=== PATIENT | male | born 1990 | race Caucasian/White ===

== ENCOUNTER 2017-04-10 15:28 | Emergency (ER) | payer MEDICAID, OTHER ==
[~2017-04-10] VITALS: Ht 193 cm; Wt 105.0 kg
[~2017-04-10 15:28] MED LIST: AMOX500T PO; CIPR0.3S RIGHT EAR; CORTIS10A AS; IBUP600 PO; SULF1SOL4 RIGHT EYE
[2017-04-10 15:31] VITALS: BP 135/82; PULSE 104; RESP 16; TEMP 98.9; O2SAT 95
--- NOTE | 2017-04-10 15:47 | PD ---
Physical Exam Time Seen by Provider: 15:46 Narrative 26-year-old male presents emergency Department with complaint of cough 2 months. Chest pain 2 weeks. Denies shortness of breath. Reports sweating last night. Reports nasal congestion. Patient seen in triage. Vital signs reviewed. Patient awaiting bed placement. Data Data Last Documented VS Vital Signs Date Time Temp Pulse Resp B/P (MAP) Pulse Ox O2 Delivery O2 Flow Rate FiO2 04/10/17 15:31 98.9 104 16 135/82 (99) 95 MDM Supervised Visit with BOLIVAR: Tammy Zamora Apr 10, 2017 15:47
--- NOTE | 2017-04-10 16:14 | RADRPT ---
EXAM DATE/TIME: 04/10/2017 16:05 [place] COMPARISON: No previous studies available for comparison. INDICATIONS : Cough, shortness of breath for 2 months MEDICAL HISTORY : None. SURGICAL HISTORY : None. ENCOUNTER: Initial ACUITY: 2 months PAIN SCORE: 5/10 LOCATION: Bilateral chest FINDINGS: PA and lateral views of the chest show a 2.5 cm rounded area consolidation involving the right upper lobe. Remaining lungs are clear. No effusions. Heart is normal in size. Bony structures are unremarka ble. CONCLUSION: 2.5 cm rounded area consolidation within the right upper lobe. This likely relates to an area consoli dation such as an acute infiltrate. I would suggest a follow up PA and lateral view of the chest foll owing appropriate therapy to document resolution. Efraín Arshad Jr., MD on April 10, 2017 at 16:11 Board Certified Radiologist. This report was verified electronically.
--- NOTE | 2017-04-10 18:00 | PD ---
HPI Chief Complaint: Cold / Flu Symptoms Time Seen by Provider: 17:58 Travel History International Travel<30 days: No Contact w/Intl Traveler<30days: No Traveled to known affect area: No History of Present Illness HPI 40-year-old male with 2 month history of worsening cough associated with reflux, sinus congestion, postnasal drip, and increased shortness of breath. Patient has had cold sweats in the last few days. Patient has been seen by an urgent care provider approximately a week ago and started on omeprazole 40 mg for his reflux, which has improved, as well as albuterol metered-dose inhaler which hasn't seemed to help. Patient states that he quit smoking approximately 6 months ago. He states the cough has been persistent for the last 2 months and worse in the last few weeks. Patient denies ear pain but does have some throat discomfort from the cough. He can states that even with the omeprazole he still wakes up with gastric reflux symptoms without guarding. He has to sleep elevated at the head. He states his cough is only mildly productive. It is worse at night and first thing in the morning. He hasn't no sinus allergies or known drug allergies. PFSH Social History Alcohol Use: Yes Tobacco Use: No Substance Use: No Allergies-Medications (Allergen,Severity, Reaction): Coded Allergies: No Known Allergies (Unverified , 06/06/13) Reported Meds & Prescriptions Reported Meds & Active Scripts Active Ciprodex Otic Susp (Ciprofloxacin/Dexamethasone) 7.5 Ml Susp 4 Drop RIGHT EAR BID 7 Days Reported Sodium Sulamyd (Sulfacetamide Sodium) 15 Ml Soln 2 Drop RIGHT EYE QID Cortisporin Otic Suspension (Neomycin/Polymyxin/Hydrocortisone) 10 Ml Susp 3 Drop QID 10 Days FOR 10 DAYS Amoxil (Amoxicillin) 500 Mg Tab 500 Mg PO Q8H Motrin 600 Mg Tab (Ibuprofen) 600 Mg Tab 600 Mg PO Q6H PRN Review of Systems Except as stated in HPI: all other systems reviewed are Neg General / Constitutional: No: Fever, Chills Eyes: No: Visual changes HENT: Positive: Headaches, Sore Throat, Rhinitis (irritation.), Rhinorrhea, Congestion, No: Vertigo, Lightheadedness, Nosebleed, Neck Stiffness, Neck Pain, Dental Difficulties, Earache Cardiovascular: No: Chest Pain or Discomfort Respiratory: Positive: Cough, Shortness of Breath, Night Sweats, No: Wheezing, Sneezing, Orthopnea, Hemoptysis, Stridor, Pleuritic Pain Gastrointestinal: Positive: Other (chronic reflux.), No: Nausea, Vomiting, Diarrhea, Abdominal Pain Genitourinary: No: Dysuria Musculoskeletal: No: Pain Skin: No Rash Neurologic: No: Weakness Psychiatric: No: Depression Endocrine: No: Polydipsia Hematologic/Lymphatic: No: Easy Bruising Physical Exam Narrative GENERAL: Patient appears in mild distress. He is able to speak in full sentences. He does have a hoarse wet sounding cough. SKIN: Warm and dry. Normal color. Normal turgor. No diaphoresis. HEAD: Atraumatic. Normocephalic. Patient has moderate pansinus tenderness also localized in the left maxillary sinus. EYES: Pupils equal and round. No scleral icterus. No injection or drainage. ENT: No nasal bleeding or discharge. Mucous membranes pink and moist. Posterior pharynx appears irritated but not significantly erythematous or swollen. There is some cobblestoning. There is no obvious postnasal drip noted. Tonsillitis or exudate. TMs are clear bilaterally. NECK: Trachea midline. Supple nontender. CARDIOVASCULAR: Regular rate and rhythm. RESPIRATORY: No accessory muscle use. Coarse to auscultation. No significant wheezing or rales or rhonchi. Breath sounds equal bilaterally. GASTROINTESTINAL: Abdomen soft, non-tender, nondistended. Hepatic and splenic margins not palpable. MUSCULOSKELETAL: Extremities without clubbing, cyanosis, or edema. No obvious deformities. NEUROLOGICAL: Awake and alert. No obvious cranial nerve deficits. Motor grossly within normal limits. Five out of 5 muscle strength in the arms and legs. Normal speech. PSYCHIATRIC: Appropriate mood and affect; insight and judgment normal. Data Data Last Documented VS Vital Signs Date Time Temp Pulse Resp B/P (MAP) Pulse Ox O2 Delivery O2 Flow Rate FiO2 04/10/17 15:31 98.9 104 16 135/82 (99) 95 Orders Orders Electrocardiogram (04/10/17 15:47) Chest, Pa & Lat (04/10/17 15:47) Levofloxacin (Levaquin) (04/10/17 18:15) Prednisone (Deltasone) (04/10/17 18:15) MDM Medical Decision Making Medical Screen Exam Complete: Yes Emergency Medical Condition: Yes Differential Diagnosis 2 months of cough. Post nasal drip. Sinusitis. Pneumonia. Chronic reflux. Reflux induced cough and sinusitis. Possible aspiration pneumonia. Narrative Course Chest x-ray is ordered in triage showing a right upper/middle lobe infiltrate. This is read by radiologist. Further laboratory testing is not felt warranted based on the patient's history and physical. Vital signs show the patient to be mildly tachycardic but no other signs of PE or sepsis. Patient is given prednisone 40 mg by mouth now. Patient is given his first dose of Levaquin 750 mg by mouth now. Patient will be started on Flonase nasal spray 2 sprays each nostril daily. Patient obtained on prednisone 20 mg twice a day for 5 days. Patient continued on Levaquin 750 mg daily 10 days. Patient is to continue his omeprazole 40 mg daily as previously prescribed. Patient is to continue his albuterol as needed. Patient is referred to his primary care physician and possible follow-up with a finance business partner as I feel this is the nidus of this problem. Diagnosis Primary Impression: Pneumonia Qualified Codes: J69.0 - Pneumonitis due to inhalation of food and vomit Additional Impressions: Sinusitis, acute Qualified Codes: J01.40 - Acute pansinusitis, unspecified Acid reflux disease Qualified Codes: K21.9 - Gastro-esophageal reflux disease without esophagitis Referrals: Skye Navarro MD Primary Care Physician Patient Instructions: Aspiration Pneumonia (DC), Diet for Stomach Ulcers and Gastritis (ED), General Instructions, Sinusitis (ED) Additional Instructions: Patient is given prednisone 40 mg by mouth now. Patient is given his first dose of Levaquin 750 mg by mouth now. Patient will be started on Flonase nasal spray 2 sprays each nostril daily. Patient obtained on prednisone 20 mg twice a day for 5 days. Patient continued on Levaquin 750 mg daily 10 days. Patient is to continue his omeprazole 40 mg daily as previously prescribed. Patient is to continue his albuterol as needed. Patient is referred to his primary care physician and possible follow-up with a finance business partner as I feel this is the nidus of this problem. Med/Other Pt SpecificInfo: Prescription(s) given Disposition: 01 DISCHARGE HOME Condition: Stable Adiel Shields Apr 10, 2017 18:00
[2017-04-10] MEDS ORDERED: predniSONE 20 MG TAB PO ONE (18:15)
[2017-04-10] MEDS ORDERED: LEVOFLOXACIN 750 MG TAB PO ONE (18:15)
[2017-04-10] MEDS ORDERED: LEVA750T9 PO (18:27)
[2017-04-10] MEDS ORDERED: PRED20 PO (18:27)
[2017-04-10] MEDS ORDERED: FLUT1SPR5 EACH NARE (18:27)
--- NOTE | 2017-04-10 18:37 | PD ---
Physical Exam Date Seen by Provider: Apr 10, 2017 Narrative This patient presents with the chief complaint of a cough. Data Data Last Documented VS Vital Signs Date Time Temp Pulse Resp B/P (MAP) Pulse Ox O2 Delivery O2 Flow Rate FiO2 04/10/17 15:31 98.9 104 16 135/82 (99) 95 Orders Orders Electrocardiogram (04/10/17 15:47) Chest, Pa & Lat (04/10/17 15:47) Levofloxacin (Levaquin) (04/10/17 18:15) Prednisone (Deltasone) (04/10/17 18:15) Ed Discharge Order (04/10/17 18:27) MDM Supervised Visit with BOLIVAR: Yes Narrative Course I, Dr. Welch, have reviewed the advance practice practitioner's documentation and am in agreement, met with the patient face to face, made the diagnosis, and the medical decision making was done by me. *My assessment and Findings: This patient does not appear to be in respiratory distress. Lungs have good air movement. He is able to speak in complete sentences. Last Impressions Chest X-Ray 04/10/17 5607 Signed Impressions: Service Date/Time: Monday, April 10, 2017 16:05 - CONCLUSION: 2.5 cm rounded area consolidation within the right upper lobe. This likely relates to an area consolidation such as an acute infiltrate. I would suggest a follow up PA and lateral view of the chest following appropriate therapy to document resolution. Efraín Arshad Jr., MD Please see Wesley Shields PA-C's note for results of laboratory and radiographic evaluation, ED course, final diagnosis and disposition Diagnosis Primary Impression: Pneumonia Qualified Codes: J69.0 - Pneumonitis due to inhalation of food and vomit Additional Impressions: Acid reflux disease Qualified Codes: K21.9 - Gastro-esophageal reflux disease without esophagitis Sinusitis, acute Qualified Codes: J01.40 - Acute pansinusitis, unspecified Referrals: Skye Navarro MD Primary Care Physician Patient Instructions: General Instructions, Sinusitis (ED), Diet for Stomach Ulcers and Gastritis (ED), Aspiration Pneumonia (DC) Additional Instruction: Patient is given prednisone 40 mg by mouth now. Patient is given his first dose of Levaquin 750 mg by mouth now. Patient will be started on Flonase nasal spray 2 sprays each nostril daily. Patient obtained on prednisone 20 mg twice a day for 5 days. Patient continued on Levaquin 750 mg daily 10 days. Patient is to continue his omeprazole 40 mg daily as previously prescribed. Patient is to continue his albuterol as needed. Patient is referred to his primary care physician and possible follow-up with a mac operator as I feel this is the nidus of this problem. Scripts Fluticasone Nasal [place] (Flonase Nasal [place]) 50 Mcg/Act [place] 100 MCG EACH NARE BID for Allergies, #1 BOTTLE 0 Refills Prov: Ann Welch MD 04/10/17 Prednisone (Prednisone) 20 Mg Tab 20 MG PO BID for 5 Days, #10 TAB 0 Refills Prov: Ann Welch MD 04/10/17 Levofloxacin (Levaquin) 750 Mg Tablet 750 MG PO DAILY for Infection for 10 Days, #10 TAB 0 Refills Prov: Ann Welch MD 04/10/17 Disposition: 01 DISCHARGE HOME Condition: Stable Ann Welch MD Apr 10, 2017 18:37
[2017-04-11] MEDS ORDERED: OMEP40CA2 PO (01:33)
[2017-04-11] MEDS ORDERED: VENTAER INH (01:55)
[2017-04-11] MEDS ORDERED: MUCI30TA2 PO (01:55)
[2017-04-11] MEDS ORDERED: NALOXONE HCL 0.4 MG/ML AMP IV PUSH PRN (04:00)
[2017-04-11] MEDS ORDERED: SODIUM CHLORIDE 0.9% FLUSH 10 ML FLUSH IV FLUSH PRN (04:00)
[2017-04-11] MEDS ORDERED: SODIUM CHLORIDE 0.9% FLUSH 10 ML FLUSH IV FLUSH SCH (09:00)
--- NOTE | 2017-04-11 12:13 | EKG ---
Date Performed: 04/10/2017 Time Performed: 15:53:23 PTAGE: 26 years EKG: SINUS TACHYCARDIA POSSIBLE LEFT ATRIAL ENLARGEMENT INCOMPLETE RIGHT BUNDLE BRANCH BLOCK ABN ORMAL RHYTHM ECG NO PREVIOUS TRACING DOCTOR: Janice Almonte Interpretating Date/Time 04/11/2017 12:11:45
== END 2017-04-10 19:12 | disposition home or self-care (01) ==
LOC: NEPD 15:28
DX: J69.0 Pneumonitis due to inhalation of food and vomit (principal); K21.9 Gastro-esophageal reflux disease without esophagitis; J01.40 Acute pansinusitis, unspecified; R00.0 Tachycardia, unspecified; Z87.891 Personal history of nicotine dependence
CPT/HCPCS: 71020; 93005; 99284; J7512

== ENCOUNTER 2017-04-11 01:13 | Inpatient (IN) | payer MEDICAID ==
[~2017-04-11] VITALS: Ht 193 cm; Wt 105.5 kg
[2017-04-11] VITALS (10 sets, daily range): BP systolic 106–138; BP diastolic 55–76; PULSE 82–113; RESP 16–22; TEMP 96.4–99; O2SAT 95–98
[~2017-04-11 01:13] MED LIST changes: +FLUT1SPR5 EACH NARE; +LEVA750T9 PO; +PRED20 PO
[2017-04-11] MEDS ORDERED: OMEP40CA2 PO (01:33)
[2017-04-11] MEDS ORDERED: VENTAER INH (01:55)
[2017-04-11] MEDS ORDERED: MUCI30TA2 PO (01:55)
[2017-04-11] MEDS ORDERED: SODIUM CHLOR 0.9% 1000 ML INJ 1,000 ML IV ONE (02:00)
[2017-04-11] MEDS ORDERED: metroNIDAZOLE 500 MG INJ 100 ML IV ONE (02:00)
[2017-04-11 02:27] LABS: BLOOD, URINE NEG (NEG); GLUCOSE,URINE NEG (NEG); KETONE, URINE NEG (NEG); NITRITE,URINE NEG (NEG)
[2017-04-11 02:28] LABS: AUTOMATED NEUTROPHIL # 22.9 TH/MM3 (1.8-7.7); BASOPHIL # 0.1 TH/MM3 (0-0.2); BASOPHIL % 0.6 % (0.0-2.0); EOSINOPHIL % 0.1 % (0.0-4.0); HEMATOCRIT 45.2 % (39.0-51.0); LYMPH % 3.6 % (9.0-44.0); LYMPHOCYTE # 0.9 TH/MM3 (1.0-4.8); MEAN CELL VOLUME 91.2 FL (80.0-100.0); MEAN CORPUSCULAR HEMOGLOBIN 30.5 PG (27.0-34.0); MEAN CORPUSCULAR HGB CONC 33.5 % (32.0-36.0); MONO % 0.7 % (0.0-8.0); PLATELET COUNT 217 TH/MM3 (150-450); RED BLOOD COUNT 4.96 MIL/MM3 (4.50-5.90); RED CELL DISTRIBUTION WIDTH 11.4 % (11.6-17.2); WHITE BLOOD COUNT 24.1 TH/MM3 (4.0-11.0)
[2017-04-11 02:32] LABS: HEMO FLAGS DIFF FINAL
[2017-04-11 02:34] LABS: URINE COLOR YELLOW (YELLW/STRAW)
[2017-04-11 02:35] LABS: COMMENT (UR) CULT NOT INDICATED; CULTURE IF INDICATED CULT NOT INDICATED; RBC, URINE 0-2 /hpf (0-3); SQUAMOUS EPITHELIAL CELL URINE 0-5 /hpf (0-5); WBC, URINE 0-2 /hpf (0-5)
[2017-04-11 02:38] LABS: CHLORIDE 103 MEQ/L (98-107); SODIUM (NA) 136 MEQ/L (136-145)
[2017-04-11 02:41] LABS: ANION GAP 9 MEQ/L (5-15); BICARBONATE 24.2 MEQ/L (21.0-32.0); BLOOD UREA NITROGEN 13 MG/DL (7-18)
[2017-04-11 02:44] LABS: ALT (GPT) 126 U/L (12-78)
[2017-04-11 02:45] LABS: AST (GOT) 58 U/L (15-37); GLOMERULAR FILTRATION RATE 106 ML/MIN (>89)
[2017-04-11] MEDS ORDERED: PANTOPRAZOLE SODIUM 40 MG VIAL IV PUSH ONE (02:45)
[2017-04-11] MEDS ORDERED: KETOROLAC TROMETHAMINE 30 MG/ML (IVP) VIAL IV PUSH ONE (02:45)
[2017-04-11 02:46] LABS: TOTAL BILIRUBIN ADULT 1.1 MG/DL (0.2-1.0)
[2017-04-11 02:47] LABS: ALKALINE PHOSPHATASE 117 U/L (45-117)
--- NOTE | 2017-04-11 03:18 | PD ---
HPI Chief Complaint: Respiratory Distress Time Seen by Provider: 02:00 Travel History International Travel<30 days: No Contact w/Intl Traveler<30days: No Traveled to known affect area: No History of Present Illness HPI 26-year-old male presents to the emergency department by private transportation for evaluation of cough with shortness of breath and chest pain. According to patient the past 2 months has had progressively worsening cough. Patient is been seen by his primary care provider and started on medication for reflux esophagitis and told to use allergy medications for cough symptoms. Due to ongoing and persistent symptoms patient patient decided to be evaluated today and [facility] was identified by chest x-ray to have a right upper lobe area of consolidation concerning for an infiltrate. Patient was started on oral steroids and oral antibiotic. Patient was given option to be admitted to the hospital but declined and was encouraged to return to the hospital if he became more symptomatic although had been informed that he may do well as an outpatient once antibiotic and had a chance to take effect. In the interim patient reports that he has continued to feel more poorly and has had chills but denies any fever. Patient continues complaining of shortness of breath chest pain and cough. Cough is nonproductive. Patient has been sitting upright to manage reflux symptoms. Patient rates pain 6/10 intensity. No recent long distance travel protracted bedrest her surgical procedure no lower extremity pain or swelling. Patient does not describe his chest discomfort as pleuritic. Patient is unable to identify exacerbating or alleviating factors. PFSH Past Medical History Narrative Medical GERD, pneumonia dyslipidemia tobacco use nursing notes reviewed Diminished Hearing: No Gastrointestinal Disorders: Yes (ELEVATED LFT'S) GERD: Yes Pneumonia: Yes Triglycerides - High: Yes Tetanus Vaccination: > 5 Years Influenza Vaccination: Yes Past Surgical History Oral Surgery: Yes Social History Alcohol Use: Yes Tobacco Use: Yes (3 CIGARETTES PER WEEK) Substance Use: No Allergies-Medications (Allergen,Severity, Reaction): Coded Allergies: No Known Allergies (Unverified , 04/11/17) Reported Meds & Prescriptions Reported Meds & Active Scripts Active Flonase Nasal [place] (Fluticasone Nasal [place]) 50 Mcg/Act [place] 100 Mcg EACH NARE BID Prednisone 20 Mg Tab 20 Mg PO BID 5 Days Levaquin (Levofloxacin) 750 Mg Tablet 750 Mg PO DAILY 10 Days Reported Mucinex DM (Dextromethorphan-Guaifenesin) 30-600 Mg Tab 1 Tab PO BID PRN Ventolin Hfa 18 GM Inh (Albuterol Sulfate) 90 Mcg/Act Aer 2 Puff INH Q4H PRN Omeprazole 40 Mg Cap 40 Mg PO DAILY Review of Systems Except as stated in HPI: all other systems reviewed are Neg General / Constitutional: Positive: Chills, No: Fever HENT: Positive: Congestion Cardiovascular: Positive: Chest Pain or Discomfort Respiratory: Positive: Cough, Shortness of Breath Gastrointestinal: Positive: Nausea Genitourinary: No: Flank Pain Musculoskeletal: Positive: Myalgias, Arthralgias Skin: No Rash Neurologic: Positive: Weakness, No: Syncope, Headache Psychiatric: No: Anxiety Hematologic/Lymphatic: No: Lymph Node Enlargement Physical Exam Narrative GENERAL: Well-developed well-nourished male in no acute distress no respiratory distress SKIN: Warm and dry. HEAD: Normocephalic. EYES: No scleral icterus. No injection or drainage. NECK: Supple, trachea midline. No JVD or lymphadenopathy. CARDIOVASCULAR: Regular rate and rhythm without murmurs, gallops, or rubs. RESPIRATORY: Breath sounds equal bilaterally. No accessory muscle use. GASTROINTESTINAL: Abdomen soft, non-tender, nondistended. MUSCULOSKELETAL: No cyanosis, or edema. BACK: Nontender without obvious deformity. No CVA tenderness. Data Data Last Documented VS Vital Signs Date Time Temp Pulse Resp B/P (MAP) Pulse Ox O2 Delivery O2 Flow Rate FiO2 04/11/17 02:49 97.7 86 22 111/66 (81) 98 Room Air Orders Orders Electrocardiogram (04/11/17 02:00) Complete Blood Count With Diff (04/11/17 02:00) Comprehensive Metabolic Panel (04/11/17 02:00) Lactic Acid Sepsis Protocol (04/11/17 02:00) Urinalysis - C+S If Indicated (04/11/17 02:00) Blood Culture (04/11/17 02:00) Ecg Monitoring (04/11/17 02:00) Iv Access Insert/Monitor (04/11/17 02:00) Oximetry (04/11/17 02:00) Sodium Chlor 0.9% 1000 Ml Inj (Ns 1000 M (04/11/17 02:00) Metronidazole 500 Mg Inj (Flagyl 500 Mg (04/11/17 02:00) Ketorolac Inj (Toradol Inj) (04/11/17 02:45) Pantoprazole Inj (Protonix Inj) (04/11/17 02:45) Influenzae A/B Antigen (04/11/17 02:44) D-Dimer (04/11/17 02:44) Admit Order (Ed Use Only) (04/11/17 04:01) Admit To Inpatient (04/11/17 ) Inpatient Certification (04/11/17 ) Clindamycin Inj (Cleocin Inj) (04/11/17 04:30) Lactobacillus Acidophilus (Lactinex) (04/11/17 09:00) Labs Laboratory Tests Test 04/11/17 02:10 White Blood Count 24.1 TH/MM3 Red Blood Count 4.96 MIL/MM3 Hemoglobin 15.1 GM/DL Hematocrit 45.2 % Mean Corpuscular Volume 91.2 FL Mean Corpuscular Hemoglobin 30.5 PG Mean Corpuscular Hemoglobin Concent 33.5 % Red Cell Distribution Width 11.4 % Platelet Count 217 TH/MM3 Mean Platelet Volume 9.2 FL Neutrophils (%) (Auto) 95.0 % Lymphocytes (%) (Auto) 3.6 % Monocytes (%) (Auto) 0.7 % Eosinophils (%) (Auto) 0.1 % Basophils (%) (Auto) 0.6 % Neutrophils # (Auto) 22.9 TH/MM3 Lymphocytes # (Auto) 0.9 TH/MM3 Monocytes # (Auto) 0.2 TH/MM3 Eosinophils # (Auto) 0.0 TH/MM3 Basophils # (Auto) 0.1 TH/MM3 CBC Comment DIFF FINAL Differential Comment D-Dimer Quantitative (PE/DVT) 0.31 MG/L FEU Urine Color YELLOW Urine Turbidity CLEAR Urine pH 6.0 Urine Specific [place] 1.017 Urine Protein NEG mg/dL Urine Glucose (UA) NEG mg/dL Urine Ketones NEG mg/dL Urine Occult Blood NEG Urine Nitrite NEG Urine Bilirubin NEG Urine Leukocyte Esterase NEG Urine RBC 0-2 /hpf Urine WBC 0-2 /hpf Urine Squamous Epithelial Cells 0-5 /hpf Urine Bacteria NONE /hpf Microscopic Urinalysis Comment CULT NOT INDICATED Blood Urea Nitrogen 13 MG/DL Creatinine 0.86 MG/DL Random Glucose 144 MG/DL Total Protein 8.3 GM/DL Albumin 4.1 GM/DL Calcium Level 9.2 MG/DL Alkaline Phosphatase 117 U/L Aspartate Amino Transf (AST/SGOT) 58 U/L Alanine Aminotransferase (ALT/SGPT) 126 U/L Total Bilirubin 1.1 MG/DL Sodium Level 136 MEQ/L Potassium Level 4.0 MEQ/L Chloride Level 103 MEQ/L Carbon Dioxide Level 24.2 MEQ/L Anion Gap 9 MEQ/L Estimat Glomerular Filtration Rate 106 ML/MIN Lactic Acid Level 1.7 mmol/L MDM Medical Decision Making Medical Screen Exam Complete: Yes Emergency Medical Condition: Yes Medical Record Reviewed: Yes Interpretation(s) lactic acid: 1.7 CBC is automated differential leukocytosis white count 24,000 with left shift Complete metabolic panel mild elevation of LFTs a 9 gap 11 not elevated Urinalysis within normal limits d-dimer: 0.31, not elevated influenza a/b ag: negative Differential Diagnosis Pneumonia, viral syndrome, influenza, dehydration, PE Narrative Course Consolidation consistent with Patient recently evaluated at [facility] earlier in the day diagnosed with right upper lobe pneumonia possible aspiration pneumonia with history of reflux esophagitis started on oral antibiotic Levaquin was discharged home and noted to have increasing symptoms of present at this time for admission as earlier had been given the option for admission versus outpatient management. Patient with marked leukocytosis 24,000 with 95% neutrophils by automated differential lactic acid is normal range at 1.7 Influenza is negative EKG sinus rhythm rate 84 right ventricular conduction delay no acute ST elevation or injury pattern change noted no ectopy Chest x-ray from 4 PM in the afternoon shows right upper lobe consolidation consistent with infiltrate Critical Care Narrative Aggregate critical care time was 30 minutes. Time to perform other separately billable procedures was not included in the critical care time. My time did not include minutes spent treating any other patients simultaneously or on activities that did not directly contribute to the patient's treatment. The services I provided to this patient were to treat and/or prevent clinically significant deterioration that could result in: Respiratory failure, septic shock, I provided critical care services requiring my management, as noted below: Chart data review, documentation time, medication orders and management, vital sign assessments/reviewing monitor data, ordering and reviewing lab tests, ordering and interpreting/reviewing x-rays and diagnostic studies, care of the patient and discussion of the patient with the admitting physicians. Sepsis Criteria SIRS Criteria (2 or more): Heart rate over 90, WBC > 38959, < 4000 or > 10% bands Sepsis Criteria (SIRS+source): Infect source susp/known (pneumonia) Physician Communication Physician Communication call placed to [facility] -- discussed with Dr Mckeon for admisssion Diagnosis Primary Impression: Pneumonia Qualified Codes: J18.1 - Lobar pneumonia, unspecified organism Additional Impression: Sepsis Qualified Codes: A41.9 - Sepsis, unspecified organism Admitting Information Admitting Physician Requests: Admit Vilma Barboza MD Apr 11, 2017 03:17
[2017-04-11] MEDS: CLINDAMYCIN INJ 900 MG in SODIUM CHLORIDE 0.9% INJ 100 ML IV SCH ×4 (04:33→18:01)
[2017-04-11] MEDS: LACTOBACILLUS ACIDOPHILUS TAB PO SCH ×3 (08:20→18:01)
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
--- NOTE | 2017-04-11 12:22 | EKG ---
Date Performed: 04/11/2017 Time Performed: 02:19:58 PTAGE: 26 years EKG: Sinus rhythm POSSIBLE RIGHT VENTRICULAR CONDUCTION DELAY BORDERLINE ECG PREVIOUS TRACING : 04/10/2017 15.53 Compared to prior tracing no significant change DOCTOR: Janice Almonte Interpretating Date/Time 04/11/2017 12:17:58
[2017-04-11 13:12] LABS: CHLORIDE 103 MEQ/L (98-107); POTASSIUM 3.4 MEQ/L (3.5-5.1); SODIUM (NA) 137 MEQ/L (136-145)
[2017-04-11 13:15] LABS: ANION GAP 9 MEQ/L (5-15)
[2017-04-11 13:16] LABS: BLOOD UREA NITROGEN 14 MG/DL (7-18)
[2017-04-11 13:18] LABS: ALT (GPT) 98 U/L (12-78)
[2017-04-11 13:19] LABS: AST (GOT) 41 U/L (15-37); GLOMERULAR FILTRATION RATE 113 ML/MIN (>89)
[2017-04-11 13:20] LABS: TOTAL BILIRUBIN ADULT 0.7 MG/DL (0.2-1.0)
[2017-04-11 13:21] LABS: ALKALINE PHOSPHATASE 99 U/L (45-117)
[2017-04-11] MEDS ORDERED: RESP: ALBUTEROL 2.5 MG/IPRATROPIUM 0.5 MG NEB (PRN) NEB (17:00)
[2017-04-11] MEDS ORDERED: AZITHROMYCIN 250 MG TAB PO ONE (17:15)
[2017-04-11] MEDS: RESP: ALBUTEROL 2.5 MG/IPRATROPIUM 0.5 MG NEB (SCH) NEB (19:28)
[2017-04-11] MEDS ORDERED: ACETAMINOPHEN 500 MG CPLT PO ONE (19:45)
[2017-04-11] MEDS ORDERED: NAPROXEN 250 MG TAB PO PRN (19:45)
[2017-04-11] MEDS: guaiFENesin E.R. 600 MG TAB PO SCH (19:46)
--- NOTE | 2017-04-11 21:56 | RADRPT ---
EXAM DATE/TIME: 04/11/2017 21:30 [place] COMPARISON: CHEST PA & LAT, April 10, 2017, 16:05. INDICATIONS : Productive cough since this morning. MEDICAL HISTORY : None. SURGICAL HISTORY : None. ENCOUNTER: Subsequent ACUITY: 1 day PAIN SCORE: 0/10 LOCATION: Bilateral chest FINDINGS: Compare April 10. Again seen is the patchy airspace disease in right upper lobe most characteristic of bronchopneumonia. Followup recommended in the next several weeks after therapy. Left lung clear. No effusion. Heart size normal. CONCLUSION: 1. Patchy airspace disease right upper lobe most characteristic of a bronchopneumonia. Findings simil ar to April 10. Khai Norman MD on April 11, 2017 at 21:53 Board Certified Radiologist. This report was verified electronically.
[2017-04-12] VITALS: BP 122/58; PULSE 83; RESP 20; TEMP 96.8; O2SAT 97
[2017-04-12] MEDS: CLINDAMYCIN INJ 900 MG in SODIUM CHLORIDE 0.9% INJ 100 ML IV SCH ×5 (00:53→17:51)
[2017-04-12 04:00] VITALS: BP 119/74; PULSE 88; RESP 16; TEMP 95.9; O2SAT 98
[2017-04-12] MEDS ORDERED: NAPROXEN 250 MG TAB PO ONE (06:15)
[2017-04-12 06:38] LABS: AUTOMATED NEUTROPHIL # 8.8 TH/MM3 (1.8-7.7); BASOPHIL % 0.2 % (0.0-2.0); EOSINOPHIL # 0.3 TH/MM3 (0-0.4); EOSINOPHIL % 2.2 % (0.0-4.0); HEMATOCRIT 38.1 % (39.0-51.0); HEMO FLAGS DIFF FINAL; LYMPH % 13.3 % (9.0-44.0); LYMPHOCYTE # 1.6 TH/MM3 (1.0-4.8); MEAN CELL VOLUME 91.8 FL (80.0-100.0); MEAN CORPUSCULAR HEMOGLOBIN 31.9 PG (27.0-34.0); MEAN CORPUSCULAR HGB CONC 34.8 % (32.0-36.0); MONO % 8.3 % (0.0-8.0); PLATELET COUNT 155 TH/MM3 (150-450); RED BLOOD COUNT 4.15 MIL/MM3 (4.50-5.90); RED CELL DISTRIBUTION WIDTH 11.6 % (11.6-17.2); WHITE BLOOD COUNT 11.7 TH/MM3 (4.0-11.0)
[2017-04-12] MEDS: RESP: ALBUTEROL 2.5 MG/IPRATROPIUM 0.5 MG NEB (SCH) NEB ×2 (07:25→14:40)
[2017-04-12 08:00] VITALS: BP_SYST 130; BP_SYST 184; BP_DIAS 70; BP_DIAS 93; PULSE 99; RESP 20; TEMP 96.6; O2SAT 96
[2017-04-12] MEDS ORDERED: AZITHROMYCIN 250 MG TAB PO SCH (09:00)
[2017-04-12] MEDS: guaiFENesin E.R. 600 MG TAB PO SCH (09:21)
[2017-04-12] MEDS: LACTOBACILLUS ACIDOPHILUS TAB PO SCH ×3 (09:21→17:51)
[2017-04-12] MEDS: BENZONATATE 100 MG CAP PO PRN ×2 (09:23→17:51)
[2017-04-12] MEDS ORDERED: PANTOPRAZOLE SOD 40 MG DELAYED RELEASE TAB PO SCH (09:45)
[2017-04-12] MEDS ORDERED: INFLUENZA VIRUS VACCINE (QUADRIVALENT) 0.5 ML SYR IM ONE (10:00)
[2017-04-12 12:00] VITALS: BP 111/72; PULSE 85; RESP 16; TEMP 97.1; O2SAT 96
[2017-04-12] MEDS ORDERED: SODIUM CHLOR 0.9% 1000 ML INJ 1,000 ML IV ONE (12:00)
[2017-04-12] MEDS ORDERED: KETOROLAC TROMETHAMINE 30 MG/ML (IVP) VIAL IV PUSH ONE (12:00)
[2017-04-12 12:38] LABS: CHLORIDE 106 MEQ/L (98-107); POTASSIUM 3.4 MEQ/L (3.5-5.1); SODIUM (NA) 141 MEQ/L (136-145)
[2017-04-12 12:43] LABS: ANION GAP 10 MEQ/L (5-15); BICARBONATE 25.3 MEQ/L (21.0-32.0); BLOOD UREA NITROGEN 12 MG/DL (7-18)
[2017-04-12 13:17] LABS: ALKALINE PHOSPHATASE 92 U/L (45-117); ALT (GPT) 92 U/L (12-78); AST (GOT) 43 U/L (15-37); GLOMERULAR FILTRATION RATE 124 ML/MIN (>89); TOTAL BILIRUBIN ADULT 0.6 MG/DL (0.2-1.0)
[2017-04-12 16:00] VITALS: BP 124/75; PULSE 105; RESP 18; TEMP 96.6; O2SAT 97
[2017-04-12] MEDS ORDERED: RESP: ACETYLCYSTEINE 10% 30 ML NEB NEB SCH (17:00)
[2017-04-12] MEDS ORDERED: PROM6.256 PO (18:37)
[2017-04-12] MEDS ORDERED: AZIT250T3 PO (18:37)
[2017-04-12] MEDS ORDERED: CLIN1CAP6 PO (18:38)
--- NOTE | 2017-04-12 18:39 | HHI.DCPOC ---
Discharge Care Plan Diagnosis: (1) Atypical pneumonia (2) Sepsis Goals to Promote Your Health * To prevent worsening of your condition and complications * To maintain your health at the optimal level Directions to Meet Your Goals Take your medications as prescribed Follow your dietary instruction Follow activity as directed Keep your appointments as scheduled Take your immunizations and boosters as scheduled If your symptoms worsen call your PCP, if no PCP go to Urgent Care Center or Emergency Room Smoking is Dangerous to Your Health. Avoid second hand smoke Call the 24-hour hour crisis hotline for domestic abuse at Frankie Castillo MD Apr 12, 2017 18:39
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
== END 2017-04-12 19:15 | disposition home or self-care (01) | DRG 871 ==
LOC: PHED 01:13 → PHEDA 04:02 → PHEDH 08:52 → PH3B 15:00
PROVIDERS: ADMIT Hospitalist; ATTEND Hospitalist
DX: A41.9 Sepsis, unspecified organism (principal); J18.9 Pneumonia, unspecified organism; F17.210 Nicotine dependence, cigarettes, uncomplicated; J45.909 Unspecified asthma, uncomplicated; K21.9 Gastro-esophageal reflux disease without esophagitis; E78.5 Hyperlipidemia, unspecified; Z23 Encounter for immunization
CPT/HCPCS: 71020; 80053; 81001; 83605; 83735; 85025; 85379; 87040; 87804; 90686; 93005; 94150; 94640; 94664; 96365; 96375; C9113; J1885; J7030; J7608; Q2038

== ENCOUNTER 2017-10-13 03:26 | Inpatient (IN) | payer OTHER ==
[~2017-10-13] VITALS: Ht 190.5 cm; Wt 98.4 kg
[~2017-10-13 03:26] MED LIST changes: -AMOX500T PO; +AZIT250T3 PO; -CIPR0.3S RIGHT EAR; +CLIN300C5 PO; -CORTIS10A AS; -IBUP600 PO; -LEVA750T9 PO; +OMEP40CA2 PO; -PRED20 PO; +PROM6.256 PO; -SULF1SOL4 RIGHT EYE; +VENTAER INH
[2017-10-13 03:43] VITALS: BP 133/94; PULSE 117; RESP 18; TEMP 98.7; O2SAT 97
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
[2017-10-13 04:19] LABS: AUTOMATED NEUTROPHIL # 7.8 TH/MM3 (1.8-7.7); BASOPHIL # 0.1 TH/MM3 (0-0.2); BASOPHIL % 0.5 % (0.0-2.0); EOSINOPHIL # 0.1 TH/MM3 (0-0.4); EOSINOPHIL % 0.6 % (0.0-4.0); HEMATOCRIT 47.6 % (39.0-51.0); HEMOGLOBIN 16.4 GM/DL (13.0-17.0); LYMPH % 24.9 % (9.0-44.0); LYMPHOCYTE # 2.9 TH/MM3 (1.0-4.8); MEAN CELL VOLUME 91.1 FL (80.0-100.0); MEAN CORPUSCULAR HEMOGLOBIN 31.4 PG (27.0-34.0); MEAN CORPUSCULAR HGB CONC 34.4 % (32.0-36.0); MEAN PLATELET VOLUME 9.7 FL (7.0-11.0); MONO % 6.5 % (0.0-8.0); MONOCYTE # 0.8 TH/MM3 (0-0.9); NEUT % 67.5 % (16.0-70.0); PLATELET COUNT 247 TH/MM3 (150-450); RED BLOOD COUNT 5.23 MIL/MM3 (4.50-5.90); WHITE BLOOD COUNT 11.6 TH/MM3 (4.0-11.0)
[2017-10-13 04:35] LABS: ALBUMIN 4.6 GM/DL (3.4-5.0); ALT (GPT) 37 U/L (12-78); AST (GOT) 22 U/L (15-37); BICARBONATE 26.4 MEQ/L (21.0-32.0); BLOOD UREA NITROGEN 6 MG/DL (7-18); CALCIUM 9.2 MG/DL (8.5-10.1); CHLORIDE 108 MEQ/L (98-107); CREATININE 0.82 MG/DL (0.60-1.30); GLOMERULAR FILTRATION RATE 111 ML/MIN (>89); GLUCOSE,RANDOM 98 MG/DL (74-106); SODIUM (NA) 142 MEQ/L (136-145)
[2017-10-13 04:46] LABS: ALKALINE PHOSPHATASE 132 U/L (45-117); TOTAL BILIRUBIN ADULT 0.6 MG/DL (0.2-1.0)
[2017-10-13 04:50] LABS: ACETAMINOPHEN LESS THAN 2.0 MCG/ML (10.0-30.0)
[2017-10-13 06:00] VITALS: BP 119/67; PULSE 95; RESP 18; O2SAT 97
[2017-10-13] MEDS ORDERED: ACETAMINOPHEN 325 MG TAB PO PRN (07:00)
[2017-10-13] MEDS ORDERED: MAGNESIUM HYDROXIDE SUSP 30 ML CUP PO PRN (07:00)
[2017-10-13] MEDS ORDERED: ALUMINUM/MAGNESIUM/SIMETH 30 ML CUP PO PRN (07:00)
[2017-10-13] MEDS ORDERED: LORazepam 2 MG TAB PO PRN (07:00)
[2017-10-13] MEDS ORDERED: LORazepam 1 MG TAB PO PRN ×2 (07:00)
[2017-10-13] MEDS ORDERED: LORazepam 2 MG/ML VIAL IM PRN ×2 (07:00)
[2017-10-13] MEDS ORDERED: LORazepam 2 MG/ML VIAL IV PUSH PRN ×4 (07:00)
[2017-10-13] MEDS ORDERED: LORazepam 0.5 MG TAB PO PRN (07:00)
[2017-10-13] MEDS ORDERED: FLUMAZENIL 0.5 MG/5 ML VIAL IV PUSH PRN (07:00)
[2017-10-13] MEDS: NICOTINE 21 MG/24 HR PATCH T-DERMAL SCH (09:00)
[2017-10-13 13:31] VITALS: BP 130/75; PULSE 96; RESP 16; TEMP 98.3; O2SAT 98
[2017-10-13 17:38] VITALS: BP 140/80; PULSE 72; RESP 16; TEMP 98.1; O2SAT 97
[2017-10-14 05:56] VITALS: BP 90/65; PULSE 65; RESP 18; TEMP 97.7; O2SAT 97
[2017-10-14] MEDS: NICOTINE 21 MG/24 HR PATCH T-DERMAL SCH (08:45)
[2017-10-14 10:00] LABS: BICARBONATE 26.1 MEQ/L (21.0-32.0); BLOOD UREA NITROGEN 11 MG/DL (7-18); CALCIUM 9.7 MG/DL (8.5-10.1); CHLORIDE 105 MEQ/L (98-107); CREATININE 0.93 MG/DL (0.60-1.30); GLOMERULAR FILTRATION RATE 96 ML/MIN (>89); GLUCOSE,RANDOM 96 MG/DL (74-106); SODIUM (NA) 139 MEQ/L (136-145)
[2017-10-14] MEDS ORDERED: INFLUENZA VIRUS VACCINE (QUADRIVALENT) 0.5 ML SYR IM ONE (10:00)
[2017-10-14 10:02] LABS: CHOLESTEROL 95 MG/DL (120-200); TRIGLYCERIDES 140 MG/DL (42-150)
[2017-10-14 10:04] LABS: CHOLESTEROL/ HDL RATIO 2.36 RATIO; HDL CHOLESTEROL 40.2 MG/DL (40.0-60.0); LDL CHOLESTEROL 27 MG/DL (0-99)
--- NOTE | 2017-10-14 15:07 | HHI.HP ---
Provisional Diagnosis Admission Date Oct 13, 2017 at 06:59 [place]. Adjustment disorder with depressed mood Certification of Person's Competence To Provide Express and Informed Consent I have personally examined Luigi Mandujano , a person being served at [facility] on, Oct 14, 2017 15:05. Express and informed consent means consent voluntarily given in writing, by a competent person, after sufficient explanation and disclosure of the subject matter involved to enable the person to make a knowing and willful decision without any element of force, fraud, deceit, duress, or other form of constraint or coercion. This person is 18 years of age or older, is not now known to be incompetent to consent to treatment with a guardian advocate, and does not have a health care surrogate or proxy currently making medical treatment decisions. I have found this person to be one of the following: [xxx] Competent to provide express and informed consent, as defined above, for voluntary admission to this facility and is competent to provide express and informed consent for treatment. He/she has the consistent capacity to make well reasoned, willful, and knowing decisions concerning his or her medical or mental health treatment. The person fully and consistently understands the purpose of the admission for examination/placement and is fully capable of personally exercising all rights assured under [place] Incompetent to provide express and informed consent to voluntary admission, and this is incompetent to provide express and informed consent to treatment. The person must be transferred to involuntary status and a petition for a guardian advocate filed with the Circuit Court. [] Refusing to provide express and informed consent to voluntary admission but is competent to provide express and informed consent for treatment. The person must be discharged or transferred to involuntary status. Form shall be completed within 24 hours of a person's arrival at the receiving facility and filed in the clinical record of each person: 1. Admitted on a voluntary basis 2. Permitted to provide express and informed consent to his/her own treatment 3. Allowed to transfer from involuntary to voluntary status 4. Prior to permitting a person to consent to his or her own treatment after having been previously found incompetent to consent to treatment. History of Present Illness Capacity: Has Capacity HPI Patient is a 27-year-old man, engaged, domiciled with fianc and 2 children, unemployed, with no formal past psychiatric history, no prior psychiatric admissions, no prior suicide attempts or self injurious behavior,, with history of alcohol use, past medical history significant for GERD, who was brought in under [place] act after patient had told his fiance that he loves his kids after recent argument which she proceeded to grab his guns from the closet and locked himself in the bathroom but was stopped by his fiance in the context of alcohol intoxication and patient was admitted to the inpatient psychiatry unit for further evaluation and management. Discussion nursing staff reported the patient denying having intention for suicide attempt and wanted to be discharged home. Patient was found ambulating on the unit noted B , cooperative. Patient states that prior to his admission he had gotten " really drunk" and stated he was texting his fiance in which he had gotten into an argument when she came home where he had grabbed his will case and started to had to the bathroom was stopped by her. He states that he just wanted to get her attention and that he was drunk with no intent on ending his life. Patient states that he had never had any previous suicide attempts, psychiatric diagnoses or hospitalizations in the past. Patient mentioned he drinks alcohol about 3-4 drinks every 2 months but that prior to his admission had drank more than he usually does. Patient denying any depressive symptoms reporting good sleep, appetite, energy and concentration, denying feeling sad or depressed, denying perceptual disturbances or delusions. Collateral information was obtained from patient's fianc Ruby Horton [phone], who states that patient has been involved with her for the past 8 years and states she knows him very well. She states that patient has never had any prior psychiatric diagnoses, admissions or suicide attempts but in the recent past has told her to tell his kids that he loves them and that he cannot do this anymore in the context of arguments with her. She states believing the patient would benefit from outpatient therapy, has no safety concerns of patient returning home but would like patient to be connected to outpatient services. She states that she plans on visiting patient this evening and will communicate how the visit went with staff tomorrow. Family psychiatric history: Denies Past psychiatric history: Denies any previous psychiatric diagnoses, hospitalizations, suicide attempts or self-injurious behavior. Patient denies any history of abuse. Substance use history: Patient reports alcohol use every 2 months about 3-4 drinks at a time but states that her last drink was prior to his admission which he states had 5-6 drinks. Patient denies history of other drug use, denies any history of detox or rehabilitation programs. 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 Patient denies any legal history, denies any history, denies having any asked to firearms as he states there were removed by the police when the brought him to the hospital. Review of Systems Except as stated in HPI: all other systems reviewed are Neg Past Psych History Psychological trauma history Denies Violence risk - others (6 mos) Low Violence risk - self (6 mos) Elevated due to recent suicidal ideation Substance Abuse History Drugs/Alcohol past 12 months Patient reports alcohol use every 2 months about 3-4 drinks at a time but states that her last drink was prior to his admission which he states had 5-6 drinks. Patient denies history of other drug use, denies any history of detox or rehabilitation programs. Past Family Social History Coded Allergies: No Known Allergies (Unverified Allergy, Unknown, 10/13/17) Reported Medications Albuterol 18 GM Inh (Ventolin Hfa 18 GM Inh) 90 Mcg/Act Aer, 2 PUFF INH Q4H Y for SHORTNESS OF BREATH, #1 INHALER 0 Refills 04/11/17 Discontinued Reported Medications Omeprazole (Omeprazole) 40 Mg Cap, 40 MG PO DAILY, #30 CAP 0 Refills 04/11/17 Discontinued Scripts Clindamycin (Clindamycin) 300 Mg Cap, 300 MG PO Q6H for Infection, #32 CAP 0 Refills Prov:Frankie Castillo MD 04/12/17 Promethazine-Codeine Liq (Promethazine-Codeine Liq) 6.25-10 Mg/5 Ml Syrp, 10 ML PO Q4H Y for cough, #200 ML 0 Refills Prov:Frankie Castillo MD 04/12/17 Azithromycin (Azithromycin) 250 Mg Tab, 250 MG PO DAILY for infection, #5 TAB Prov:Frankie Castillo MD 04/12/17 Fluticasone Nasal [place] (Flonase Nasal [place]) 50 Mcg/Act [place], 100 MCG EACH NARE BID for Allergies, #1 BOTTLE 0 Refills Prov:Ann Welch MD 04/10/17 Current Medications Medications (Trade) Dose Ordered Sig/Nasra Route Start Time Stop Time Status Last Admin (Ativan) 1 mg Q6H PRN PO 10/13/17 07:00 (Ativan Inj) 1 mg Q6H PRN IM 10/13/17 07:00 (Tylenol) 650 mg Q4H PRN PO 10/13/17 07:00 (Milk Of Magnesia Liq) 30 ml DAILY PRN PO 10/13/17 07:00 (Mag-Al Plus Susp Liq) 30 ml Q6H PRN PO 10/13/17 07:00 (Habitrol 21 Mg Patch.24 Hr) 1 patch DAILY T-DERMAL 10/13/17 09:00 (Romazicon Inj) 0.2 mg Q1M PRN IV PUSH 10/13/17 07:00 (Ativan) 1 mg Q4H PRN PO 10/13/17 07:00 (Ativan Inj) 1 mg Q4H PRN IV PUSH 10/13/17 07:00 (Ativan) 2 mg Q2H PRN PO 10/13/17 07:00 (Ativan Inj) 2 mg Q2H PRN IV PUSH 10/13/17 07:00 (Ativan Inj) 2 mg Q1H PRN IV PUSH 10/13/17 07:00 (Ativan Inj) 2 mg Q15M PRN IV PUSH 10/13/17 07:00 Family Psych History Denies Social History Engaged, lives with alex and 2 children, states being employed but [employer] 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 Patient denies any legal history, denies any history, denies having any asked to firearms as he states there were removed by the police when the brought him to the hospital. Patient's Strengths (min. 2) Verbal and communicative Physical Exam Patient not noted to be acute distress, no gross motor abnormalities, no psychomotor agitation or retardation, no EPS or tremor. Vital Signs Vital Signs Date Time Temp Pulse Resp B/P (MAP) Pulse Ox O2 Delivery O2 Flow Rate FiO2 10/14/17 05:56 97.7 65 18 90/65 (73) 97 10/13/17 06:00 Room Air Lab Results Labs reviewed Test 10/14/17 09:00 Blood Urea Nitrogen 11 MG/DL Creatinine 0.93 MG/DL Random Glucose 96 MG/DL Calcium Level 9.7 MG/DL Sodium Level 139 MEQ/L Potassium Level 3.8 MEQ/L Chloride Level 105 MEQ/L Carbon Dioxide Level 26.1 MEQ/L Anion Gap 8 MEQ/L Estimat Glomerular Filtration Rate 96 ML/MIN Triglycerides Level 140 MG/DL Cholesterol Level 95 MG/DL LDL Cholesterol 27 MG/DL HDL Cholesterol 40.2 MG/DL Cholesterol/HDL Ratio 2.36 RATIO Mental Status Examination Appearance: Appropriate Consciousness: Alert Orientation: Person, Place, Date/Time Motor Activity: Normal gait Speech: Unremarkable Language: Adequate Fund of Knowledge: Inadequate Attention and Concentration: Adequate Memory: Unremarkable Mood: Appropriate Affect: Appropriate Thought Process & Associations: Intact, Logical, Linear Thought Content: Appropriate Hallucination Type: None Delusion Type: None Suicidal Ideation: Yes (Denies at this time) Suicidal Plan: No Suicidal Intention: No Homicidal Ideation: No Homicidal Plan: No Homicidal Intention: No Insight: Fair Judgment: Impulsive Assessment & Plan Problem List: (1) Adjustment disorder with disturbance of conduct ICD Codes: F43.24 - Adjustment disorder with disturbance of conduct (2) Alcohol abuse ICD Codes: F10.10 - Alcohol abuse, uncomplicated Assessment & Plan Patient is a 27-year-old man with no formal past psychiatric history, recent alcohol abuse was brought in under [place] act due to patient expressing suicide ideation in the context of alcohol intoxication. Patient at this time denying any depressive symptoms, stating that his recent actions were secondary to his recent argument with fianc and intoxication with alcohol. Currently no indications for psychotropic medications to be started, we will continue to monitor mood and behavior while on the unit. Collateral formation from patient' s fianc confirms patient with no psychiatric history, although feels patient would benefit from outpatient follow-up. If patient continues to remain stable on the unit as possible discharge tomorrow with outpatient referral for follow- up. Continue monitor mood and behavior. Patient agrees to voluntary admission at this time. This was planning in progress. Discharge Planning Patient return back to his residence when psychiatrically stable. Arron Snyder MD Oct 14, 2017 15:06
[2017-10-14 15:09] LABS: HEMOGLOBIN A1C 4.1 % (4.3-6.0)
[2017-10-14 18:00] VITALS: BP 133/64; PULSE 70; RESP 17; TEMP 98.4; O2SAT 99
[2017-10-15 05:45] VITALS: BP 104/55; PULSE 75; RESP 16; TEMP 98; O2SAT 98
[2017-10-15] MEDS: NICOTINE 21 MG/24 HR PATCH T-DERMAL SCH (08:06)
--- NOTE | 2017-10-15 12:14 | HHI.DS ---
Psychiatry Discharge Summary Inpatient Psychiatric care?: Yes Advance Directive: No Reason Not Provided: Does not have Mental Health AdvanceDirective: No Health Care Proxy: No Admission Admission Date Oct 13, 2017 at 06:59 Admission Diagnosis: (1) Adjustment disorder with disturbance of conduct ICD Code: F43.24 - Adjustment disorder with disturbance of conduct (2) Alcohol abuse ICD Code: F10.10 - Alcohol abuse, uncomplicated Brief History Patient is a 27-year-old man, engaged, domiciled with alex and 2 children, unemployed, with no formal past psychiatric history, no prior psychiatric admissions, no prior suicide attempts or self injurious behavior,, with history of alcohol use, past medical history significant for GERD, who was brought in under [place] act after patient had told his fiance that he loves his kids after recent argument which she proceeded to grab his guns from the closet and locked himself in the bathroom but was stopped by his fiance in the context of alcohol intoxication and patient was admitted to the inpatient psychiatry unit for further evaluation and management. Discussion nursing staff reported the patient denying having intention for suicide attempt and wanted to be discharged home. Patient was found ambulating on the unit noted B , cooperative. Patient states that prior to his admission he had gotten " really drunk" and stated he was texting his fiance in which he had gotten into an argument when she came home where he had grabbed his barbara hathaway and started to had to the bathroom was stopped by her. He states that he just wanted to get her attention and that he was drunk with no intent on ending his life. Patient states that he had never had any previous suicide attempts, psychiatric diagnoses or hospitalizations in the past. Patient mentioned he drinks alcohol about 3-4 drinks every 2 months but that prior to his admission had drank more than he usually does. Patient denying any depressive symptoms reporting good sleep, appetite, energy and concentration, denying feeling sad or depressed, denying perceptual disturbances or delusions. Collateral information was obtained from patient's fiserina Beltran Clifford [phone], who states that patient has been involved with her for the past 8 years and states she knows him very well. She states that patient has never had any prior psychiatric diagnoses, admissions or suicide attempts but in the recent past has told her to tell his kids that he loves them and that he cannot do this anymore in the context of arguments with her. She states believing the patient would benefit from outpatient therapy, has no safety concerns of patient returning home but would like patient to be connected to outpatient services. She states that she plans on visiting patient this evening and will communicate how the visit went with staff tomorrow. Family psychiatric history: Denies Past psychiatric history: Denies any previous psychiatric diagnoses, hospitalizations, suicide attempts or self-injurious behavior. Patient denies any history of abuse. Substance use history: Patient reports alcohol use every 2 months about 3-4 drinks at a time but states that her last drink was prior to his admission which he states had 5-6 drinks. Patient denies history of other drug use, denies any history of detox or rehabilitation programs. 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 Patient denies any legal history, denies any history, denies having any asked to firearms as he states there were removed by the police when the brought him to the hospital. Tobacco Use In Past 30 Days: Cigarettes But Not Daily Alcohol Use: Monthly or Less Hospital Course Patient is a 27-year-old man, engaged, domiciled with alex and 2 children, unemployed, with no formal past psychiatric history, no prior psychiatric admissions, no prior suicide attempts or self injurious behavior,, with history of alcohol use, past medical history significant for GERD, who was brought in under [place] act after patient had told his fiance that he loves his kids after recent argument which she proceeded to grab his guns from the closet and locked himself in the bathroom but was stopped by his fiance in the context of alcohol intoxication and patient was admitted to the inpatient psychiatry unit for further evaluation and management. Patient was admitted to a locked, inpatient psychiatric unit. Appropriate precautions were in place throughout patient's hospital stay. Patient was seen and examined on the unit by psychiatry. No psychotropic medications were started as patient did not present with significant symptoms that indicated starting of any pharmacological intervention at this time. There was no evidence of any suicidality or homicidality on the inpatient unit. Patient's behavior had been stable during observation and events that led to his admission likely secondary to effects from alcohol intoxication. Collateral information from patients manohar had reported that patient with prior psychiatric history, no prior suicide attempts or self injurious behavior. The patient is agreeable to going to outpatient clinic for mental health services and engage in therapy. He feels ready to leave the hospital, denies any suicidal or homicidal ideation , intent or plan on direct questioning and contracts for safety. I can elicit no mood symptoms. He denies any audiovisual hallucinations. No delusional material verbalized today. No physical complaints. Suicide and violence risk assessment on day of discharge both suggest lower imminent risk, and the patient 's level of function is adequate for planned level of outpatient care. Patient has maximized benefit from this inpatient psychiatric hospital stay and will be discharged to mother who will take him back to his residence with follow-up as arranged by counselor. Patient advised to call 911 or go nearest ED in case of emergency. Patient agreed with plan. Results Blood Pressure 104 / 55 Vital Signs Date Time Temp Pulse Resp B/P (MAP) Pulse Ox O2 Delivery O2 Flow Rate FiO2 10/15/17 05:45 98.0 75 16 104/55 (71) 98 10/13/17 06:00 Room Air Laboratory Tests Test 10/13/17 03:49 10/13/17 03:51 10/14/17 09:00 White Blood Count 11.6 TH/MM3 (4.0-11.0) Neutrophils # (Auto) 7.8 TH/MM3 (1.8-7.7) Blood Urea Nitrogen 6 MG/DL (7-18) Total Protein 9.0 GM/DL (6.4-8.2) Alkaline Phosphatase 132 U/L (45-117) Chloride Level 108 MEQ/L (98-107) Salicylates Level LESS THAN 1.7 MG/DL Acetaminophen Level LESS THAN 2.0 MCG/ML Ethyl Alcohol Level 181 MG/DL (0-5) Hemoglobin A1c 4.1 % (4.3-6.0) Cholesterol Level 95 MG/DL (120-200) Laboratory Results Test 10/14/17 09:00 Cholesterol Level 95 MG/DL (120-200) HDL Cholesterol 40.2 MG/DL (40.0-60.0) Hemoglobin A1c 4.1 % (4.3-6.0) LDL Cholesterol 27 MG/DL (0-99) Triglycerides Level 140 MG/DL (42-150) Summary of Procedures none Pending results at discharge: No Medications # of Antipsychotic meds at D/C: 0 Approp Antipsych med options 1 - Minimum of three failed multiple trials of monotherapy. 2 - Documented plan to taper to monotherapy due to previous use of multiple meds OR cross-taper in progress at D/C. 3 - Documentation of augmentation of Clozapine. 4 - Justification other than those listed in allowable values 1-3, document here : Discharge Discharge Date: Oct 15, 2017 Discharge Diagnosis: (1) Adjustment disorder with disturbance of conduct ICD Code: F43.24 - Adjustment disorder with disturbance of conduct (2) Alcohol abuse ICD Code: F10.10 - Alcohol abuse, uncomplicated Pt Condition on Discharge: Stable Discharge Disposition: Discharge Home Discharge Instructions Diet Instructions: As Tolerated, No Restrictions Activities you can perform: Regular-No Restrictions Discharge Time > 30 minutes Mental Status Examination Appearance: Appropriate Consciousness: Alert Orientation: Person, Place, Date/Time Motor Activity: Normal gait Speech: Unremarkable Language: Adequate Fund of Knowledge: Inadequate Attention and Concentration: Adequate Memory: Unremarkable Mood: Appropriate Affect: Appropriate Thought Process & Associations: Intact, Logical, Linear Thought Content: Appropriate Hallucination Type: None Delusion Type: None Suicidal Ideation: No Suicidal Plan: No Suicidal Intention: No Homicidal Ideation: No Homicidal Plan: No Homicidal Intention: No Insight: Fair Judgment: Impulsive Discharge/Advance Care Plan Health Problems: (1) Adjustment disorder with disturbance of conduct (2) Alcohol abuse Goals to promote your health * To prevent worsening of your condition and complications * To maintain your health at the optimal level Directions to meet your goals Take your medications as prescribed Follow your dietary instruction Follow activity as directed Keep your appointments as scheduled Take your immunizations and boosters as scheduled If your symptoms worsen call your PCP, if no PCP go to Urgent Care Center or Emergency Room For 21/01 questions related to your inpatient stay or results of tests pending at discharge, please contact Dr. Arron Snyder at Smoking is Dangerous to Your Health. Avoid second hand smoking Arron Snyder MD Oct 15, 2017 12:14
== END 2017-10-15 13:00 | disposition home or self-care (01) | DRG 882 ==
LOC: NEPD 03:26 → NEDA 06:59 → H260 11:15
PROVIDERS: ADMIT Student in an Organized Health Care Education/Training Program; ATTEND Student in an Organized Health Care Education/Training Program
DX: F43.24 Adjustment disorder with disturbance of conduct (principal); F10.10 Alcohol abuse, uncomplicated; Y90.6 Blood alcohol level of 120-199 mg/100 ml; Z72.0 Tobacco use
CPT/HCPCS: 80048; 80053; 80061; 80307; 83036; 84443; 85025